=== PATIENT | male | born 1945 | race Caucasian/White ===

== ENCOUNTER 2019-04-13 07:02 | Day surgery (SDC) | payer BC, MEDICARE ==
[2019-04-13] MEDS ORDERED: Sodium Chloride 0.9% 1,000 ML IV SCH (07:30)
[2019-04-13] MEDS ORDERED: fentaNYL 100 MCG/2 ML SDV ONE (08:30)
[2019-04-13] MEDS ORDERED: Propofol 200 MG/20 ML SDV ONE (08:30)
--- NOTE | 2019-04-13 13:14 | PROC ---
DATE OF PROCEDURE: 04/13/2019 SURGEON: Mando Agudelo MD INDICATION: Samir is a 73-year-old male, who comes in for an esophagogastroduodenoscopy, as he has been having a significant amount of GERD and abdominal pain. The risks and benefits were explained to the patient and was taken to the OR. PROCEDURE IN DETAIL: Anesthesia was given by nurse title one reading teacher. During the procedure, we used 100 mcg of fentanyl and 120 mg of propofol. The Olympus 180 gastroscope was used, was placed in the pharynx, into the esophagus without difficulty, and advanced under direct vision. Tube was advanced into the first and second part of the duodenum. Upon retraction of the tube, noted mild duodenal erythema. Upon retraction of the tube further, came into the stomach, which revealed no abnormality. The tube was retroflexed into the fundus, which revealed no abnormality. Air was withdrawn from the stomach. The GE junction was identified. The mucosa of the esophagus was entirely unremarkable. The vocal cords moved symmetrically. No obvious pathology noted. The tube was removed. The patient tolerated the procedure well. Pictures were taken of the duodenal bulb, the stomach, GE junction, and the vocal cords. PREOPERATIVE DIAGNOSES: Abdominal pain, gastroesophageal reflux disease. POSTOPERATIVE DIAGNOSIS: Duodenal erythema. No other pathology was noted. Mando Agudelo MD /[id number]
== END 2019-04-13 10:16 | disposition home or self-care (01) ==
LOC: JP.SDS 07:02
PROVIDERS: ATTEND Internal Medicine
DX: K21.9 Gastro-esophageal reflux disease without esophagitis (principal); R10.9 Unspecified abdominal pain; K31.89 Other diseases of stomach and duodenum
CPT/HCPCS: 43235; J2704; J3010; J7030